=== PATIENT | female | born 1995 | race Hispanic/Latino ===

== ENCOUNTER 2021-09-27 17:02 | Emergency (ER) | payer OTHER ==
[~2021-09-27] VITALS: Ht 167.6 cm; Wt 125.7 kg
[2021-09-27] MEDS ORDERED: CEPHALEXIN500 MG PO (17:34)
== END 2021-09-27 17:46 | disposition home or self-care (01) ==
LOC: FSED 17:10
DX: O26.91 Pregnancy related conditions, unspecified, first trimester (principal); R10.9 Unspecified abdominal pain; F41.9 Anxiety disorder, unspecified
CPT/HCPCS: 99283

== ENCOUNTER 2021-11-22 08:30 | Emergency (ER) | payer OTHER ==
[~2021-11-22] VITALS: Ht 167.6 cm; Wt 130.0 kg
[~2021-11-22 08:30] MED LIST: CEPHALEXIN500 MG PO
[2021-11-22] MEDS ORDERED: ZITHROMAX250 MG PO (09:15)
== END 2021-11-22 09:50 | disposition home or self-care (01) ==
LOC: FSED 08:45
DX: R05.9 Cough, unspecified (principal); J20.9 Acute bronchitis, unspecified; J02.9 Acute pharyngitis, unspecified; Z33.1 Pregnant state, incidental; F41.9 Anxiety disorder, unspecified; E66.9 Obesity, unspecified
CPT/HCPCS: 99282

== ENCOUNTER 2022-10-10 13:59 | Emergency (ER) | payer OTHER ==
[~2022-10-10] VITALS: Ht 167.6 cm; Wt 123.9 kg
[~2022-10-10 13:59] MED LIST changes: +ZITHROMAX250 MG PO
[2022-10-10] MEDS ORDERED: BROMPHENIR-PSE118 ML PO (15:18)
[2022-10-10] MEDS ORDERED: ZITHROMAX250 MG PO (15:18)
== END 2022-10-10 15:35 | disposition home or self-care (01) ==
LOC: FSED 14:05
DX: R05.9 Cough, unspecified (principal); J20.9 Acute bronchitis, unspecified; J02.9 Acute pharyngitis, unspecified; F41.9 Anxiety disorder, unspecified; E66.9 Obesity, unspecified; Z20.822 Contact with and (suspected) exposure to COVID-19; F17.210 Nicotine dependence, cigarettes, uncomplicated
CPT/HCPCS: 83518; 87400; 99283; U0002